=== PATIENT | female | born 1940 | race Caucasian/White ===

== ENCOUNTER 2018-06-24 07:46 | Day surgery (SDC) | payer MEDICARE ==
[~2018-06-24 07:46] MED LIST: ABAC300; ASPI81CH; LISI20 PO; OMEP20ER PO; Simvastatin20 MG PO
== END 2018-06-24 22:45 | disposition home or self-care (01) ==
LOC: MOI US 07:46
PROC: 07B53ZX Excision of Right Axillary Lymphatic, Percutaneous Approach, Diagnostic (ICD-10-PCS; principal; 2018-06-24)
DX: C96.9 Malignant neoplasm of lymphoid, hematopoietic and related tissue, unspecified (principal); Z85.3 Personal history of malignant neoplasm of breast; Z85.72 Personal history of non-Hodgkin lymphomas
CPT/HCPCS: 38505; 76942; 88305; 88360

== ENCOUNTER 2018-06-29 10:11 | Day surgery (SDC) | payer MEDICARE | END 2018-06-29 23:00 | disposition home or self-care (01) | LOC: MOI MAM 10:11 | PROC: 0HBT3ZX Excision of Right Breast, Percutaneous Approach, Diagnostic (ICD-10-PCS; principal; 2018-06-29) | DX: D05.11 Intraductal carcinoma in situ of right breast (principal); N64.1 Fat necrosis of breast; Z85.3 Personal history of malignant neoplasm of breast | CPT/HCPCS: 19081 ==

== ENCOUNTER 2018-10-28 08:00 | Day surgery (SDC) | payer MEDICARE ==
[2018-10-28] MEDS ORDERED: LISI20 PO (13:37)
[2018-10-28] MEDS ORDERED: Zocor20 MG PO (13:37)
[2018-10-28] MEDS ORDERED: ACID REDUCER20 MG PO (13:38)
[2018-10-28] MEDS ORDERED: Aspirin EC81 MG PO (13:38)
[2018-10-28] MEDS ORDERED: IBUP800 PO (13:38)
[2018-10-28] MEDS ORDERED: Zofran8 MG PO (13:38)
[2018-10-28] MEDS ORDERED: [UNRECOGNIZED DRUG - OTHER] TOP (13:39)
== END 2018-10-28 23:07 | disposition home or self-care (01) ==
LOC: MOI US 08:00
DX: C50.811 Malignant neoplasm of overlapping sites of right female breast (principal)
CPT/HCPCS: 19281

== ENCOUNTER 2018-11-04 06:11 | Day surgery (SDC) | payer MEDICARE ==
[~2018-11-04] VITALS: Ht 160 cm; Wt 59.4 kg
[~2018-11-04 06:11] MED LIST changes: +ACID REDUCER20 MG PO; +Aspirin EC81 MG PO; +IBUP800 PO; +Zocor20 MG PO; +Zofran8 MG PO; +[UNRECOGNIZED DRUG - OTHER] TOP
--- NOTE | 2018-11-04 07:10 | NUR ---
11/04/18 0710 Kiki Garcia FOR FIRST 2 IV ATTEMPS DID HAVE NICE RETURN ON BLOOD BUT UNABLE TO ADVANCE CATHETER. 3RD ATTEMP SUCCESSFUL.
--- NOTE | 2018-11-04 09:19 | NUR ---
11/04/18 0918 Cary Marmolejo A RIGHT AXILLARY MASS SENT TO PATH FRESH, PER DR'S REQUEST.
--- NOTE | 2018-11-04 09:48 | NUR ---
11/04/18 0948 Miley Benson PT TRANSFERRED INTO THE RECLINER WITH STAND BY ASSIST FROM RN. VSS AT THIS TIME. PT DENIES PAIN AND NAUSEA. WARM BLANKETS PROVIDED. ABDI DRAIN INTACT AFTER TRANSFER. SCANT AMOUNT OF BRIGHT RED FLUID IN DRAIN.
== END 2018-11-04 11:00 | disposition home or self-care (01) ==
LOC: ORSCSDS 06:11
PROVIDERS: Surgery
PROC: 07B50ZX Excision of Right Axillary Lymphatic, Open Approach, Diagnostic (ICD-10-PCS; principal; 2018-11-04 07:30)
PROC: 0HBT0ZZ Excision of Right Breast, Open Approach (ICD-10-PCS; principal; 2018-11-04 07:30)
DX: C50.811 Malignant neoplasm of overlapping sites of right female breast (principal); C77.3 Secondary and unspecified malignant neoplasm of axilla and upper limb lymph nodes; I10 Essential (primary) hypertension; I25.2 Old myocardial infarction; F17.210 Nicotine dependence, cigarettes, uncomplicated; Z79.899 Other long term (current) drug therapy; Z79.82 Long term (current) use of aspirin
CPT/HCPCS: 76098; 88305; 88307; 88342; J0690; J1100; J2250; J2370; J2405; J3010; J7120

== ENCOUNTER 2018-12-16 08:40 | Day surgery (SDC) | payer MEDICARE ==
[~2018-12-16] VITALS: Ht 160 cm; Wt 59.4 kg
--- NOTE | 2018-12-16 09:26 | NUR ---
History, Chart, Medications and Allergies reviewed before start of procedure. Patient confirms NPO status and agrees with scheduled surgery. Lungs clear T/O to Auscultation. Pre-Op teaching done. Pt verbalizes understanding. Patient States Post-Procedure ride home has been arranged. Patient reports completing Chlorhexadine shower X2 prior to admission to hospital.
--- NOTE | 2018-12-16 09:50 | NUR ---
TRACKER CARD EXPLAINED, OPPORTUNITY FOR QUESTIONS ANSWERED. PATIENT'S FAMILY AT BEDSIDE. RIVKA'S SEATED IMMEDIATELY AFTER ENTRY TO [facility] DUE TO FEELING LIGHTHEADED. PATIENT AND DAUGHTER'S SAY THAT IS NORMAL FOR HIM, HE RECOVERED QUICKLY, WITHIN 5 MINUTES, AND WAS TRANSFERED ON HIS OWN POWER TO A WHEELCHAIR. POSITIONED NEXT TO HIS , ALL IS WELL.
--- NOTE | 2018-12-16 10:18 | NUR ---
PATIENT AND FAMILY UPDATED.
--- NOTE | 2018-12-16 10:48 | NUR ---
UPDATED PATIENT AND FAMILY, DENIES NEEDS, STATES COMFORTABLE.
--- NOTE | 2018-12-16 10:55 | NUR ---
NOTIFIED DR RUST PATIENT'S RIGHT BREAST WAS SWOLLEN, PINK AND FIRM.
--- NOTE | 2018-12-16 10:55 | NUR ---
THREAD REELER REPORT COMPLETED AT BEDSIDE, WITH BALDEMAR FRANKLIN RN.
--- NOTE | 2018-12-16 15:01 | NUR ---
PT CAME TO STEP WITH TWO ABDI DRAINS ON LEFT CHEST. PT DENIESD PAIN AND CONCERNS ON ARRIVAL. VSS. CMS INTACT TO RUE. PROVIDED PATIENT PAIN MEDS AFTER TOLERATING PO INTAKE. FAMILY AT BEDSIDE.
--- NOTE | 2018-12-16 16:02 | NUR ---
PATIENT TOLERATED RECOVERY WITHOUT DIFFICULTY. Patient up to Ambulate independently. Gait steady. Discharge instructions reviewed with patient. Patient verbalizes understanding. Copy given to patient to take home. Patient able to demonstrate back drain care. supplies provided. Patient States Post-Procedure ride home has been arranged. Discharged via wheelchair to private car for ride home. All belongings returned to patient. genie drain #1 20cc s/s drainage. jpdrain #2 30cc s/s drainage. dressing to r chest cdi.
== END 2018-12-16 23:07 | disposition home or self-care (01) ==
LOC: ORSCMMR 08:40 → ORD 10:15 → ORSCMMR 10:15
PROVIDERS: Surgery
PROC: 0HTT0ZZ Resection of Right Breast, Open Approach (ICD-10-PCS; principal; 2018-12-16 10:15)
PROC: 07B50ZX Excision of Right Axillary Lymphatic, Open Approach, Diagnostic (ICD-10-PCS; principal; 2018-12-16 10:15)
DX: C50.811 Malignant neoplasm of overlapping sites of right female breast (principal); C77.3 Secondary and unspecified malignant neoplasm of axilla and upper limb lymph nodes; I10 Essential (primary) hypertension; I25.10 Atherosclerotic heart disease of native coronary artery without angina pectoris; J44.9 Chronic obstructive pulmonary disease, unspecified; K21.9 Gastro-esophageal reflux disease without esophagitis; F17.210 Nicotine dependence, cigarettes, uncomplicated; Z79.899 Other long term (current) drug therapy; Z79.82 Long term (current) use of aspirin
CPT/HCPCS: 88309; J0690; J1100; J1885; J2250; J2405; J3010; J7120

== ENCOUNTER → 2019-05-16 | Outpatient (CLI) | payer MEDICARE | LOC: PLD 08:06 → LAB SHORT 08:06 | DX: D48.5 Neoplasm of uncertain behavior of skin (principal) | CPT/HCPCS: 88305 ==

== ENCOUNTER → 2019-06-19 | Outpatient (CLI) | payer MEDICARE | END | disposition home or self-care (01) | LOC: LAB SHORT 08:09 → PLD 08:09 | DX: C44.311 Basal cell carcinoma of skin of nose (principal) | CPT/HCPCS: 88305 ==

== ENCOUNTER → 2019-06-21 | Outpatient (CLI) | payer MEDICARE | END | disposition home or self-care (01) | LOC: PLD 07:45 → LAB SHORT 07:45 | DX: C44.311 Basal cell carcinoma of skin of nose (principal) | CPT/HCPCS: 88305 ==

== ENCOUNTER 2019-11-10 12:51 | Day surgery (SDC) | payer MEDICARE ==
[~2019-11-10] VITALS: Ht 157.5 cm; Wt 60.8 kg
--- NOTE | 2019-11-10 14:00 | NUR ---
11/10/[address] AWARE PT PRESENTS IN PREOP RIGHT ARM/HAND SWELLING WITH REDNESS. ALSO AWARE OF RED, RAISED RASH ACROSS RIGHT CHEST AND SIDE.
--- NOTE | 2019-11-10 15:01 | NUR ---
11/10/19 1501 Ariana Carbajal GENERALIZED REDNESS TO CHEST AREA & BREASTS. SWELLING OF THE RIGHT ARM. DR. RUST AWARE.
--- NOTE | 2019-11-10 16:03 | NUR ---
11/10/19 1603 CHELSEY DE DIOS MEDIPORT PLACEMENT VERIFIED BY DR. AUGUSTE AT 1547
== END 2019-11-10 16:01 | disposition home or self-care (01) ==
LOC: ORSCSDS 12:51
PROVIDERS: Surgery
PROC: B544ZZA Ultrasonography of Left Jugular Veins, Guidance (ICD-10-PCS; principal; 2019-11-10 13:30)
PROC: 05HN33Z Insertion of Infusion Device into Left Internal Jugular Vein, Percutaneous Approach (ICD-10-PCS; principal; 2019-11-10 13:30)
DX: C50.811 Malignant neoplasm of overlapping sites of right female breast (principal); I10 Essential (primary) hypertension; I25.10 Atherosclerotic heart disease of native coronary artery without angina pectoris; I25.2 Old myocardial infarction; F17.210 Nicotine dependence, cigarettes, uncomplicated; K21.9 Gastro-esophageal reflux disease without esophagitis; Z79.899 Other long term (current) drug therapy; Z79.82 Long term (current) use of aspirin
CPT/HCPCS: 77001; C1788; J0690; J1642; J2001; J2250; J2704; J3010; J7120

== ENCOUNTER → 2020-04-10 | Outpatient (CLI) | payer MEDICARE ==
[~2020-04-10] MED LIST changes: -ACID REDUCER20 MG PO; +OMEP20ER
== END | disposition home or self-care (01) ==
LOC: PLD 09:44 → LAB SHORT 09:44
DX: C79.2 Secondary malignant neoplasm of skin (principal)
CPT/HCPCS: 88305

== ENCOUNTER 2020-08-23 10:11 | Emergency (ER) | payer MEDICARE ==
[~2020-08-23] VITALS: Ht 157.5 cm; Wt 49.9 kg
== END 2020-08-23 11:39 | disposition home or self-care (01) ==
LOC: ER 10:11
DX: S82.031A Displaced transverse fracture of right patella, initial encounter for closed fracture (principal); F17.210 Nicotine dependence, cigarettes, uncomplicated; Z88.5 Allergy status to narcotic agent; Z88.1 Allergy status to other antibiotic agents; Z95.5 Presence of coronary angioplasty implant and graft; W01.0XXA Fall on same level from slipping, tripping and stumbling without subsequent striking against object, initial encounter; Y93.89 Activity, other specified
CPT/HCPCS: 29505; 73562-LT; 99283-25

== ENCOUNTER 2020-11-01 11:43 | Emergency (ER) | payer MEDICARE ==
[~2020-11-01] VITALS: Ht 160 cm; Wt 47.6 kg
[2020-11-01 12:46] LABS: BASOPHILS ABSOLUTE AUTO 0.02 K/mm3 (0.00-0.23); BASOPHILS PERCENT AUTO 0 % (0-2); EOSINOPHILS ABSOLUTE AUTO 0.06 K/mm3 (0.00-0.68); EOSINOPHILS PERCENT AUTO 1 % (0-6); Hematocrit 26.8 % (33.0-51.0); Hemoglobin 8.5 g/dL (11.5-16.0); IMMATURE GRAN ABSOLUTE AUTO 0.02 K/mm3 (0.00-0.10); IMMATURE GRAN PERCENT AUTO 0 % (0-1); LYMPHOCYTES PERCENT AUTO 13 % (21-46); MONOCYTES ABSOLUTE AUTO 0.24 K/mm3 (0.16-1.47); MONOCYTES PERCENT AUTO 4 % (4-13); Mean Corpuscular HGB 33.1 pg (26.0-34.0); Mean Corpuscular HGB Conc 31.7 g/dL (31.5-36.5); Mean Corpuscular Volume 104 fL (80-100); Mean Platelet Volume 9.7 fL (9.1-12.4); NEUTROPHILS ABSOLUTE AUTO 4.88 K/mm3 (1.96-9.15); NEUTROPHILS PERCENT AUTO 81 % (41-73); Platelet Count 164 K/mm3 (150-400); RDW Coefficient Variation 16.8 % (11.7-14.2); RDW Standard Deviation 64.5 fL (35.1-46.3); Red Blood Cell Count 2.57 M/mm3 (3.80-5.20); White Blood Cell Count 6.02 K/mm3 (4.00-11.30)
[2020-11-01 13:03] LABS: Alanine Aminotransfer (ALT/SGP 12 U/L (12-78); Albumin, Blood 2.9 g/dL (3.4-5.0); Albumin/Globulin Ratio 0.9 (0.8-1.8); Alk Phos 62 U/L (50-136); Anion Gap 9 mmol/L (6-16); Aspartate Aminotrans (AST/SGOT 19 U/L (12-37); Bilirubin, Total 0.4 mg/dL (0.1-1.0); Blood Urea Nitrogen 22 mg/dL (8-24); Bun/Creatinine Ratio 25.7 (12.0-20.0); CO2, Blood 26 mmol/L (21-32); Calcium, Blood 5.3 mg/dL (8.5-10.1); Chloride, Blood 103 mmol/L (98-108); Creatinine, Blood 0.86 mg/dL (0.40-1.00); Globulin, Blood 3.4 g/dL (2.2-4.0); Glomerular Filtration Rate >60 (60-); Glucose, Blood 86 mg/dL (70-99); Potassium, Blood 3.8 mmol/L (3.5-5.5); Sodium, Blood 138 mmol/L (136-145); Total Protein, Blood 6.3 g/dL (6.4-8.2)
[2020-11-01 13:44] LABS: Source, Urine Clean Catch
[2020-11-01 13:51] LABS: Appearance, Urine Clear (Clear); Bilirubin, Urine Neg (Neg); Blood, Urine Neg (Neg); Color, Urine Yellow (P-Yellow); Glucose Qualitative, Urine Neg (Neg); Ketones, Urine Neg (Neg); Leukocyte Esterase, Urine Neg (Neg); Nitrite, Urine Neg (Neg); Protein, Urine Neg (Neg); Urobilinogen, Urine NORM (Normal)
[2020-11-01] MEDS ORDERED: DOXY100 PO (16:11)
[2020-11-01 16:21] LABS: Influenza A, PCR Negative (NEGATIVE); Influenza B, PCR Negative (NEGATIVE); Resp Syncytial Virus, PCR Negative (NEGATIVE); SARS-Cov-2 (COVID-19) PCR, MMC Negative (NEGATIVE)
== END 2020-11-01 16:34 | disposition home or self-care (01) ==
LOC: ER 11:43
PROVIDERS: Emergency Medicine
DX: J18.9 Pneumonia, unspecified organism (principal); F17.210 Nicotine dependence, cigarettes, uncomplicated; Z88.5 Allergy status to narcotic agent; Z88.1 Allergy status to other antibiotic agents; Z20.822 Contact with and (suspected) exposure to COVID-19
CPT/HCPCS: 0241U; 36415; 71045; 80053; 81003; 84484; 85025; 85379; 93005; 93010; 99284-25

== ENCOUNTER 2020-11-06 11:58 | Day surgery (SDC) | payer MEDICARE ==
[~2020-11-06 11:58] MED LIST changes: +DOXY100 PO
[2020-11-06] MEDS ORDERED: DOXY100 PO (13:58)
== END 2020-11-06 14:58 | disposition home or self-care (01) ==
LOC: ATC 11:58
DX: C50.811 Malignant neoplasm of overlapping sites of right female breast (principal); F17.210 Nicotine dependence, cigarettes, uncomplicated; D70.1 Agranulocytosis secondary to cancer chemotherapy; D64.81 Anemia due to antineoplastic chemotherapy; M21.379 Foot drop, unspecified foot; I10 Essential (primary) hypertension; M79.89 Other specified soft tissue disorders; G89.3 Neoplasm related pain (acute) (chronic); C79.2 Secondary malignant neoplasm of skin; C83.38 Diffuse large B-cell lymphoma, lymph nodes of multiple sites; L03.119 Cellulitis of unspecified part of limb; R22.42 Localized swelling, mass and lump, left lower limb; S82.002S Unspecified fracture of left patella, sequela; X58.XXXS Exposure to other specified factors, sequela; Z88.1 Allergy status to other antibiotic agents; Z88.5 Allergy status to narcotic agent; Z78.0 Asymptomatic menopausal state; Z90.11 Acquired absence of right breast and nipple; Z98.890 Other specified postprocedural states
CPT/HCPCS: 36415; 80053; 85025; 96365; J0610; J1642; J7030

== ENCOUNTER 2020-11-12 00:24 | Day surgery (SDC) | payer MEDICARE ==
[2020-11-12] MEDS ORDERED: KLOR-CON 1010 MEQ PO (08:53)
[2020-11-12] MEDS ORDERED: LIDOCAINE PRILOCAINE TOP (08:56)
[2020-11-12] MEDS ORDERED: IBU800 M1 PO (08:57)
[2020-11-12] MEDS ORDERED: Zofran8 MG PO (08:58)
[2020-11-12] MEDS ORDERED: DOXY100 PO (08:58)
[2020-11-12 08:59] LABS: Hematocrit 28.8 % (33.0-51.0); Hemoglobin 9.4 g/dL (11.5-16.0); Mean Corpuscular HGB 32.2 pg (26.0-34.0); Mean Corpuscular HGB Conc 32.6 g/dL (31.5-36.5); Mean Corpuscular Volume 99 fL (80-100); Platelet Count 142 K/mm3 (150-400); RDW Coefficient Variation 17.1 % (11.7-14.2); RDW Standard Deviation 61.8 fL (35.1-46.3); Red Blood Cell Count 2.92 M/mm3 (3.80-5.20); White Blood Cell Count 11.54 K/mm3 (4.00-11.30)
[2020-11-12 09:22] LABS: BAND PERCENT MAN 3 % (0-8); BASOPHILS PERCENT MAN 0 % (0-2); EOSINOPHILS ABSOLUTE MAN 0.11 K/mm3 (0.00-0.68); EOSINOPHILS PERCENT MAN 1 % (0-6); LYMPHOCYTES ABSOLUTE MAN 0.69 K/mm3 (0.84-5.20); LYMPHOCYTES PERCENT MAN 6 % (21-46); MONOCYTES ABSOLUTE MAN 1.26 K/mm3 (0.16-1.47); MONOCYTES PERCENT MAN 11 % (4-13); NEUTROPHILS ABSOLUTE MAN 9.46 K/mm3 (1.96-9.15); SEG NEUTROPHILS PERCENT MAN 79 % (41-73); TOTAL CELLS COUNTED 100
[2020-11-12 09:24] LABS: Alanine Aminotransfer (ALT/SGP 16 U/L (12-78); Albumin, Blood 3.1 g/dL (3.4-5.0); Alk Phos 105 U/L (50-136); Anion Gap 8 mmol/L (6-16); Aspartate Aminotrans (AST/SGOT 19 U/L (12-37); Bilirubin, Total 0.6 mg/dL (0.1-1.0); Blood Urea Nitrogen 20 mg/dL (8-24); Bun/Creatinine Ratio 30.9 (12.0-20.0); CO2, Blood 31 mmol/L (21-32); Calcium, Blood 6.2 mg/dL (8.5-10.1); Chloride, Blood 100 mmol/L (98-108); Creatinine, Blood 0.65 mg/dL (0.40-1.00); Glomerular Filtration Rate >60 (60-); Glucose, Blood 108 mg/dL (70-99); Potassium, Blood 2.6 mmol/L (3.5-5.5); Sodium, Blood 139 mmol/L (136-145); Total Protein, Blood 6.1 g/dL (6.4-8.2)
== END 2020-11-12 10:40 | disposition home or self-care (01) ==
LOC: ATC 00:24
PROVIDERS: Registered Nurse Oncology
DX: C50.811 Malignant neoplasm of overlapping sites of right female breast (principal); E83.51 Hypocalcemia; C79.2 Secondary malignant neoplasm of skin; I10 Essential (primary) hypertension; G89.3 Neoplasm related pain (acute) (chronic); F17.210 Nicotine dependence, cigarettes, uncomplicated; D70.1 Agranulocytosis secondary to cancer chemotherapy; T45.1X5A Adverse effect of antineoplastic and immunosuppressive drugs, initial encounter; M21.379 Foot drop, unspecified foot; E78.5 Hyperlipidemia, unspecified; K21.9 Gastro-esophageal reflux disease without esophagitis; D64.81 Anemia due to antineoplastic chemotherapy; R79.9 Abnormal finding of blood chemistry, unspecified; Z88.1 Allergy status to other antibiotic agents; Z88.5 Allergy status to narcotic agent; Z20.822 Contact with and (suspected) exposure to COVID-19; Z79.899 Other long term (current) drug therapy
CPT/HCPCS: 80053; 85025; 96360; 96361; 96365; 96366; J0610; J1642; J3480; J7030

== ENCOUNTER → 2020-12-18 | Outpatient (CLI) | payer MEDICARE ==
[~2020-12-18] MED LIST changes: +IBU800 M1 PO; +KLOR-CON 1010 MEQ PO; +LIDOCAINE PRILOCAINE TOP
[2020-12-18 11:11] LABS: Alanine Aminotransfer (ALT/SGP 16 U/L (12-78); Albumin/Globulin Ratio 0.9 (0.8-1.8); Alk Phos 76 U/L (50-136); Anion Gap 4 mmol/L (6-16); Aspartate Aminotrans (AST/SGOT 16 U/L (12-37); Bilirubin, Total 0.8 mg/dL (0.1-1.0); Blood Urea Nitrogen 15 mg/dL (8-24); Bun/Creatinine Ratio 23.4 (12.0-20.0); CO2, Blood 31 mmol/L (21-32); Calcium, Blood 7.9 mg/dL (8.5-10.1); Chloride, Blood 104 mmol/L (98-108); Creatinine, Blood 0.64 mg/dL (0.40-1.00); Globulin, Blood 3.2 g/dL (2.2-4.0); Glomerular Filtration Rate >60 (60-); Glucose, Blood 87 mg/dL (70-99); Potassium, Blood 3.8 mmol/L (3.5-5.5); Sodium, Blood 139 mmol/L (136-145); Total Protein, Blood 6.2 g/dL (6.4-8.2)
== END | disposition home or self-care (01) ==
LOC: LAB 10:07 → LAB SHORT 10:07
PROVIDERS: Internal Medicine Hematology & Oncology
DX: C50.919 Malignant neoplasm of unspecified site of unspecified female breast (principal)
CPT/HCPCS: 80053

== ENCOUNTER → 2021-11-03 | Outpatient (CLI) | payer MEDICARE ==
[2021-11-03 11:33] LABS: BASOPHILS ABSOLUTE AUTO 0.02 K/mm3 (0.00-0.23); BASOPHILS PERCENT AUTO 1 % (0-2); EOSINOPHILS ABSOLUTE AUTO 0.04 K/mm3 (0.00-0.68); EOSINOPHILS PERCENT AUTO 1 % (0-6); Hematocrit 27.7 % (33.0-51.0); Hemoglobin 8.9 g/dL (11.5-16.0); IMMATURE GRAN ABSOLUTE AUTO 0.02 K/mm3 (0.00-0.10); IMMATURE GRAN PERCENT AUTO 1 % (0-1); LYMPHOCYTES ABSOLUTE AUTO 0.57 K/mm3 (0.84-5.20); LYMPHOCYTES PERCENT AUTO 15 % (21-46); MONOCYTES ABSOLUTE AUTO 0.35 K/mm3 (0.16-1.47); MONOCYTES PERCENT AUTO 9 % (4-13); Mean Corpuscular HGB Conc 32.1 g/dL (31.5-36.5); Mean Corpuscular Volume 106 fL (80-100); Mean Platelet Volume 12.2 fL (9.1-12.4); NEUTROPHILS ABSOLUTE AUTO 2.79 K/mm3 (1.96-9.15); NEUTROPHILS PERCENT AUTO 74 % (41-73); Platelet Count 107 K/mm3 (150-400); RDW Coefficient Variation 15.4 % (11.7-14.2); RDW Standard Deviation 59.7 fL (35.1-46.3); Red Blood Cell Count 2.62 M/mm3 (3.80-5.20); White Blood Cell Count 3.79 K/mm3 (4.00-11.30)
== END | disposition home or self-care (01) ==
LOC: LAB SHORT 10:19
PROVIDERS: Internal Medicine Hematology & Oncology
DX: C50.919 Malignant neoplasm of unspecified site of unspecified female breast (principal)
CPT/HCPCS: 85025

== ENCOUNTER 2021-11-29 10:56 | Emergency (ER) | payer OTHER ==
[~2021-11-29] VITALS: Ht 157.5 cm; Wt 45.4 kg
[2021-11-29 13:25] LABS: BASOPHILS ABSOLUTE AUTO 0.02 K/mm3 (0.00-0.23); BASOPHILS PERCENT AUTO 1 % (0-2); EOSINOPHILS ABSOLUTE AUTO 0.01 K/mm3 (0.00-0.68); EOSINOPHILS PERCENT AUTO 1 % (0-6); Hematocrit 25.9 % (33.0-51.0); Hemoglobin 8.6 g/dL (11.5-16.0); IMMATURE GRAN ABSOLUTE AUTO 0.02 K/mm3 (0.00-0.10); IMMATURE GRAN PERCENT AUTO 1 % (0-1); LYMPHOCYTES ABSOLUTE AUTO 0.36 K/mm3 (0.84-5.20); LYMPHOCYTES PERCENT AUTO 19 % (21-46); MONOCYTES PERCENT AUTO 5 % (4-13); Mean Corpuscular HGB 34.7 pg (26.0-34.0); Mean Corpuscular HGB Conc 33.2 g/dL (31.5-36.5); Mean Corpuscular Volume 104 fL (80-100); NEUTROPHILS ABSOLUTE AUTO 1.41 K/mm3 (1.96-9.15); NEUTROPHILS PERCENT AUTO 74 % (41-73); NRBC ABSOLUTE 0.02 K/mm3 (0.00-0.02); Platelet Count 113 K/mm3 (150-400); RDW Coefficient Variation 15.2 % (11.7-14.2); RDW Standard Deviation 57.8 fL (35.1-46.3); Red Blood Cell Count 2.48 M/mm3 (3.80-5.20); White Blood Cell Count 1.92 K/mm3 (4.00-11.30)
[2021-11-29 13:27] LABS: Mean Platelet Volume 13.4 fL (9.1-12.4)
[2021-11-29 13:38] LABS: Anion Gap 4 mmol/L (6-16); Blood Urea Nitrogen 17 mg/dL (8-24); Bun/Creatinine Ratio 24.6 (12.0-20.0); CO2, Blood 30 mmol/L (21-32); Calcium, Blood 7.4 mg/dL (8.5-10.1); Chloride, Blood 103 mmol/L (98-108); Creatinine, Blood 0.69 mg/dL (0.40-1.00); Glomerular Filtration Rate >60 (60-); Glucose, Blood 116 mg/dL (70-99); Potassium, Blood 4.3 mmol/L (3.5-5.5); Sodium, Blood 137 mmol/L (136-145); Troponin I <0.015 ng/mL (0.000-0.040)
[2021-11-29 13:46] LABS: Magnesium, Blood 0.9 mg/dL (1.6-2.4)
== END 2021-11-29 16:25 | disposition home or self-care (01) ==
LOC: ER 10:56
PROVIDERS: Student in an Organized Health Care Education/Training Program
DX: E83.42 Hypomagnesemia (principal); I25.2 Old myocardial infarction; F17.210 Nicotine dependence, cigarettes, uncomplicated; Z88.5 Allergy status to narcotic agent
CPT/HCPCS: 36415; 71046; 80048; 83735; 83880; 84484; 85025; 93005; 93010; 96365; 96366; 99285-25; J3475

== ENCOUNTER 2022-01-12 10:22 | Emergency (ER) | payer OTHER ==
[~2022-01-12] VITALS: Ht 160 cm; Wt 44.9 kg
[2022-01-12 10:45] LABS: Hematocrit 30.4 % (33.0-51.0); Hemoglobin 9.6 g/dL (11.5-16.0); Mean Corpuscular HGB 30.7 pg (26.0-34.0); Mean Corpuscular HGB Conc 31.6 g/dL (31.5-36.5); Mean Corpuscular Volume 97 fL (80-100); Mean Platelet Volume 12.4 fL (9.1-12.4); Platelet Count 516 K/mm3 (150-400); RDW Standard Deviation 55.7 fL (35.1-46.3); Red Blood Cell Count 3.13 M/mm3 (3.80-5.20)
[2022-01-12 10:56] LABS: NRBC ABSOLUTE 0.13 K/mm3 (0.00-0.02); NRBC Auto 1.9 /100 WBC (0.0-0.2); White Blood Cell Count 6.76 K/mm3 (4.00-11.30)
[2022-01-12 11:11] LABS: Alanine Aminotransfer (ALT/SGP 19 U/L (12-78); Albumin, Blood 2.5 g/dL (3.4-5.0); Albumin/Globulin Ratio 0.6 (0.8-1.8); Alk Phos 70 U/L (50-136); Anion Gap 6 mmol/L (6-16); Aspartate Aminotrans (AST/SGOT 19 U/L (12-37); Bilirubin, Total 0.6 mg/dL (0.1-1.0); Blood Urea Nitrogen 36 mg/dL (8-24); Bun/Creatinine Ratio 40.5 (12.0-20.0); CO2, Blood 33 mmol/L (21-32); Calcium, Blood 7.9 mg/dL (8.5-10.1); Chloride, Blood 95 mmol/L (98-108); Creatinine, Blood 0.89 mg/dL (0.40-1.00); Globulin, Blood 4.3 g/dL (2.2-4.0); Glomerular Filtration Rate >60 (60-); Glucose, Blood 145 mg/dL (70-99); Potassium, Blood 4.5 mmol/L (3.5-5.5); Sodium, Blood 134 mmol/L (136-145); Total Protein, Blood 6.8 g/dL (6.4-8.2)
[2022-01-12 11:29] LABS: BAND PERCENT MAN 18 % (0-8); BASOPHILS ABSOLUTE MAN 0.06 K/mm3 (0.00-0.23); BASOPHILS PERCENT MAN 1 % (0-2); EOSINOPHILS PERCENT MAN 0 % (0-6); LYMPHOCYTES % ATYPICAL MANUAL 1 % (0-0); LYMPHOCYTES ABSOLUTE MAN 0.67 K/mm3 (0.84-5.20); LYMPHOCYTES PERCENT MAN 9 % (21-46); MONOCYTES PERCENT MAN 3 % (4-13); MYELOCYTE PERCENT MAN 3 % (0-0); NEUTROPHILS ABSOLUTE MAN 5.61 K/mm3 (1.96-9.15); SEG NEUTROPHILS PERCENT MAN 65 % (41-73); TOTAL CELLS COUNTED 100
[2022-01-12 11:59] LABS: Influenza A, PCR NEGATIVE (NEGATIVE); Influenza B, PCR NEGATIVE (NEGATIVE); Resp Syncytial Virus, PCR NEGATIVE (NEGATIVE); SARS-Cov-2 (COVID-19) PCR, MMC NEGATIVE (NEGATIVE)
== END 2022-01-12 16:30 | disposition home or self-care (01) ==
LOC: ER 10:22
PROVIDERS: Family Medicine
DX: J96.01 Acute respiratory failure with hypoxia (principal); C79.81 Secondary malignant neoplasm of breast; J90 Pleural effusion, not elsewhere classified; Z20.822 Contact with and (suspected) exposure to COVID-19; F17.210 Nicotine dependence, cigarettes, uncomplicated; Z88.5 Allergy status to narcotic agent; I25.2 Old myocardial infarction; Z79.899 Other long term (current) drug therapy
CPT/HCPCS: 0241U; 71045; 71260; 80053; 83880; 85025; 93005; 93010; 99285-25; J1642; Q9967